=== PATIENT | female | born 1970 | race Caucasian/White ===

== ENCOUNTER 2016-12-24 10:55 | Emergency (ER) | payer SELFPAY ==
[2016-12-24 09:31] LABS: URINE SOURCE CLEAN CATCH
[2016-12-24 09:36] LABS: URINE APPEARANCE CLOUDY; URINE BILIRUBIN NEG (NEG); URINE BLOOD 1+ (NEG); URINE COLOR YELLOW; URINE GLUCOSE NEG (NEG); URINE KETONE NEG (NEG); URINE LEUKOCYTE ESTERASE 3+ (NEG); URINE NITRATE NEG (NEG); URINE PROTEIN 2+ (NEG); URINE SPECIFIC GRAVITY 1.015 (1.003-1.035)
[2016-12-24 09:40] LABS: CULTURE INDICATED? YES; U HYALINE CASTS AUWI 0-2 /[LPF]; URINE BACTERIA AUWI 4+ (NEGATIVE); URINE SQUAMOUS EPITHELIAL CELL FEW /[HPF]; UWBCS1 AUWI 200-300 (0-5)
[~2016-12-24 10:55] MED LIST: ADDERALL; BENZONATATE200 M1 PO; CYMBALTA; DARVOCET-N 1001 TAB PO; DIAZEPAM; ELIMITE60 G1 TP; FLONASE 0.05% N16 G1; FLOXIN10 ML OU; HYDROCODONE/APA1 T16 PO; KEFLEX PO; KETOTIFEN FUMARA5 ML OP; LORTAB 5-325 M1 EACH PO; MEDROL PO; METHADONE PO; MUCINEX FAST-M1 EACH; NEURONTIN800 MG PO; OXYCONTIN; PERCOCET10 PO; PERCOCET5/325 PO; PERCOCET7.5 PO; PREDNISONE PO; PROZAC PO; ROXICODONE30 M1 PO; SUDAFED PO; VISTARIL PO; VOLTAREN75 MG PO; ZITHROMAX PO; ZITHROMAX500 MG PO; [UNRECOGNIZED DRUG - OTHER]
== END 2016-12-24 11:21 | disposition home or self-care (01) ==
LOC: CFTX 10:55
DX: N30.00 Acute cystitis without hematuria (principal); F17.210 Nicotine dependence, cigarettes, uncomplicated
CPT/HCPCS: 81003; 84703; 87086; 87088; 87186; 99283

== ENCOUNTER 2017-02-06 18:12 | Emergency (ER) | payer SELFPAY | END 2017-02-06 18:15 | disposition home or self-care (01) | LOC: SED 18:12 | DX: L20.82 Flexural eczema (principal); F17.210 Nicotine dependence, cigarettes, uncomplicated | CPT/HCPCS: 99282 ==

== ENCOUNTER 2017-05-06 03:22 | Emergency (ER) | payer OTHER ==
[~2017-05-06] VITALS: Ht 162.6 cm; Wt 62.6 kg
== END 2017-05-06 04:07 | disposition left against medical advice (07) ==
LOC: SED 03:22
DX: T78.40XA Allergy, unspecified, initial encounter (principal)
CPT/HCPCS: 99282